=== PATIENT | female | born 1980 | race Caucasian/White ===

== ENCOUNTER 2022-03-21 06:04 | Day surgery (SDC) | payer BC ==
[2022-03-16 10:49] LABS: Hemoglobin 12.8 g/dL (12.0-15.5); Mean Corpuscular HGB CONC 31.8 g/dL (32.0-36.0); Mean Corpuscular Hemoglobin 26.3 pg (27.0-33.0); Mean Corpuscular Volume 82.5 fl (81.6-98.3); Mean Platelet Volume 9.7 fl (7.4-10.4); Platelet Count 294 10x3/uL (150-450); RBC Distribution Width 21.2 % (11.5-14.5); Red Blood Cell (RBC) Count 4.87 10x6/uL (3.90-5.03); White Blood Cell (WBC) Count 7.5 10x3/uL (3.5-10.5)
[2022-03-16 11:04] LABS: BHCG - Serum Negative (NEGATIVE); Pregs Control Background? CLEAR/WHITE (CLR/WHITE); Pregs Control Bar Appear? YES (CONTROL BAR)
[2022-03-16 15:10] VITALS: BMI 21.9
[2022-03-16 20:01] LABS: SARS-CoV-2 PCR by NAA Not Detected (NotDetected)
[2022-03-21] MEDS ORDERED: CeleCOXIB 100 MG CAP ONE (06:28)
[2022-03-21] MEDS ORDERED: Famotidine/PF 20 mg/2ml Vial ONE (06:28)
[2022-03-21] MEDS ORDERED: Lidocaine 1% MPF 2 ML VIAL ONE (06:28)
[2022-03-21] MEDS ORDERED: Gabapentin 300 MG CAP ONE (06:28)
[2022-03-21] MEDS ORDERED: EPINEPHrine 1 MG/ML AMP ONE (06:46)
[2022-03-21] MEDS ORDERED: Bupivacaine PF 0.5% 30 ML VIAL ONE (06:46)
[2022-03-21] MEDS ORDERED: Fentanyl 250 MCG/5 ML VIAL ONE (06:47)
[2022-03-21] MEDS ORDERED: PROPOFOL 20 ML ONE (06:47)
[2022-03-21] MEDS ORDERED: Glycopyrrolate 0.2 MG/ML 5 ML SYRINGE ONE (06:48)
[2022-03-21] MEDS ORDERED: Rocuronium Bromide 10 MG/ML (10ML VIAL) ONE (06:48)
[2022-03-21] MEDS ORDERED: Lidocaine 1% PF 5 ML VIAL ONE (06:48)
[2022-03-21] MEDS ORDERED: Ketorolac Tromethamine 30 MG/ML VIAL ONE (06:48)
[2022-03-21] MEDS ORDERED: Ondansetron PF 4 MG/2 ML Vial ONE (06:48)
[2022-03-21] MEDS ORDERED: Dexamethasone 4 mg/ml Vial ONE (06:48)
[2022-03-21] MEDS ORDERED: Midazolam HCl 2 mg/2 ml Vial ONE ×2 (06:48→07:05)
[2022-03-21] MEDS ORDERED: Scopolamine 1.5 mg/72 hour Patch ONE (07:04)
[2022-03-21] MEDS ORDERED: ceFAZolin 2 GM/Dextrose 50 ML IVPB ONE (08:24)
[2022-03-21] MEDS ORDERED: Meperidine HCl/PF 25 MG/ML VIAL ONE (09:35)
== END 2022-03-21 13:35 | disposition home or self-care (01) ==
LOC: CSHSDC 06:04
PROVIDERS: ATTEND Student in an Organized Health Care Education/Training Program
DX: D25.9 Leiomyoma of uterus, unspecified (principal); N72 Inflammatory disease of cervix uteri; N83.12 Corpus luteum cyst of left ovary; Z79.899 Other long term (current) drug therapy; Z88.1 Allergy status to other antibiotic agents; Z88.8 Allergy status to other drugs, medicaments and biological substances; Z20.822 Contact with and (suspected) exposure to COVID-19
CPT/HCPCS: 84703; 85027; 86850; 86900; 86901; 88307; J0171; J0690; J1100; J1885; J2175; J2250; J2405; J2704; J3010; S0020; S0028; U0003; U0005

== ENCOUNTER 2025-08-26 14:21 | Outpatient (CLI) | payer OTHER | END 2025-08-26 14:22 | disposition home or self-care (01) | LOC: CSHMAMMO 14:21 | PROVIDERS: ATTEND Family Medicine | DX: Z12.31 Encounter for screening mammogram for malignant neoplasm of breast (principal) | CPT/HCPCS: 77063; 77067 ==